=== PATIENT | female | born 1975 | race Caucasian/White ===

== ENCOUNTER 2017-06-30 03:22 | Inpatient (IN) | payer OTHER ==
[~2017-06-30] VITALS: Ht 167.6 cm; Wt 87.1 kg
[2017-06-30] MEDS ORDERED: LR 1,000 ML IV ONE (03:26)
[2017-06-30] MEDS ORDERED: OXYTOCIN/NORMAL SALINE 1,000 ML IV SCH (03:26)
[2017-06-30] MEDS ORDERED: NALBUPHINE HCL 10 MG/ML AMP IVP PRN (03:30)
[2017-06-30] MEDS ORDERED: TERBUTALINE SULFATE 1 MG/ML VIAL SUBCUT ONE (03:30)
[2017-06-30] MEDS: LR 1,000 ML IV SCH ×2 (04:14→10:48)
[2017-06-30 04:40] LABS: BASOPHILS % (AUTO) 0.2 % (0.0-2.0); EOSINOPHILS # (AUTO) 0.2 K/uL (0.0-0.4); EOSINOPHILS % (AUTO) 1.6 % (0.0-4.0); LYMPHOCYTES # (AUTO) 1.4 K/uL (1.0-5.5); LYMPHOCYTES % (AUTO) 12.8 % (20.5-51.5); MEAN CORPUSCULAR HEMOGLOBIN 30 pg (27-31); MEAN CORPUSCULAR HGB CONC 33 % (32-36); MEAN CORPUSCULAR VOLUME 89 fL (79.0-98.0); MONOCYTES # (AUTO) 0.6 K/uL (0.0-1.0); MONOCYTES % (AUTO) 5.6 % (1.7-9.3); NEUTROPHILS # (AUTO) 8.4 K/uL (1.8-7.7); NEUTROPHILS % (AUTO) 79.8 % (40.0-70.0); PLATELET COUNT (AUTO) 164 K/uL (130-430); RED BLOOD CELL COUNT(AUTO) 4.04 MIL/uL (4.2-6.2); RED CELL DISTRIBUTION WIDTH 12.4 % (9.0-15.0); WHITE BLOOD COUNT (AUTO) 10.6 K/uL (4.8-10.8)
[2017-06-30] MEDS ORDERED: FENT2mCg/mL-ROPIVA0.2%/NS EPID 150 ML EP ONE (05:38)
[2017-06-30] MEDS ORDERED: fentaNYL CITRATE/PF 100 MCG/2 ML AMP ONE (05:39)
[2017-06-30] MEDS ORDERED: LR 500 ML IV ONE (08:04)
[2017-06-30] MEDS ORDERED: FENT2mCg/mL-ROPIVA0.2%/NS EPID 150 ML EP SCH (08:15)
[2017-06-30] MEDS ORDERED: HYDROCORTISONE 0.5%, 28.35 GM TOPICAL CREAM TP ONE (08:32)
[2017-06-30 10:50] VITALS: BP_SYST 135
[2017-06-30] MEDS ORDERED: fentaNYL CITRATE 250 MCG/5 ML AMP IV ONE (14:40)
[2017-06-30] MEDS ORDERED: OXYTOCIN 10 UNIT/ML VIAL IV ONE (14:40)
[2017-06-30] MEDS ORDERED: NS IRRIG SOLN 1000 ML IR ONE (14:40)
[2017-06-30] MEDS ORDERED: CEFAZOLIN 1 GM IVPB PREMIX 50 ML IV ONE (14:40)
[2017-06-30] MEDS ORDERED: LIDOCAINE MPF 2% 5mL VIAL INJ ONE (14:40)
[2017-06-30] MEDS ORDERED: LR 1,000 ML IV SCH ×2 (15:14→15:38)
[2017-06-30] MEDS ORDERED: DIPHENHYDRAMINE INJ 50 MG/ML VIAL IM PRN (15:15)
[2017-06-30] MEDS ORDERED: ONDANSETRON HCL 4 MG/2 ML VIAL IVP PRN (15:15)
[2017-06-30] MEDS ORDERED: METOCLOPRAMIDE HCL 10 MG/2 ML VIAL IVP PRN (15:15)
[2017-06-30] MEDS ORDERED: NALOXONE HCL 0.4 MG/ML AMP (NARCAN) IVP PRN (15:15)
[2017-06-30] MEDS ORDERED: MORPHINE SULFATE 10MG/10ML PF AMP EP SCH (15:15)
[2017-06-30] MEDS ORDERED: KETOROLAC TROMETHAMINE 60 MG/2 ML VIAL IM PRN (15:15)
[2017-06-30] MEDS ORDERED: OXYTOCIN/NORMAL SALINE 1,000 ML IV ONE ×2 (15:38→15:56)
[2017-06-30] MEDS ORDERED: BISACODYL 10 MG/SUPPOSITORY RC PRN (15:45)
[2017-06-30] MEDS ORDERED: ANUSOL 1 EA SUPP.RECT (PREPARATION H) RC PRN (15:45)
[2017-06-30] MEDS ORDERED: LANOLIN 7 GM OINT. TP PRN (15:45)
[2017-06-30] MEDS ORDERED: OXYCODONE/ACETAMINOPHEN 5-325 TABLET PO PRN (15:45)
[2017-06-30] MEDS ORDERED: ACETAMINOPHEN 325 MG TABLET PO PRN (15:45)
[2017-06-30] MEDS ORDERED: RHO(D) IMMUNE GLOBULIN/MALTOSE 1500 UNITS/1.3 ML (WINHRO) IM PRN (15:45)
[2017-06-30] MEDS ORDERED: DOCUSATE SODIUM 100 MG CAPSULE PO PRN (15:45)
[2017-06-30] MEDS ORDERED: DIPH-TET-PERTUS Vaccine 0.5 ML VIAL (ADACEL) I.M. PRN (15:45)
[2017-06-30] MEDS ORDERED: SENNOSIDES/DOCUSATE SODIUM 1 TAB TABLET(SENOKOT-S) PO PRN (15:45)
[2017-06-30] MEDS ORDERED: MEASLES,MUMPS&RUBELLA VACC/PF 12500 UNIT/0.5 ML VIAL SUBQ PRN (15:45)
[2017-06-30] MEDS ORDERED: SIMETHICONE 80 MG TAB.CHEW PO PRN (15:45)
[2017-06-30 16:09] VITALS: BP_SYST 118
[2017-06-30] MEDS ORDERED: KETOROLAC TROMETHAMINE 60 MG/2 ML VIAL IM ONE (16:50)
[2017-06-30] MEDS ORDERED: KETOROLAC TROMETHAMINE 30 MG VIAL ONE (16:53)
[2017-06-30] MEDS ORDERED: TEMAZEPAM 15 MG CAPSULE PO PRN (21:00)
[2017-06-30] MEDS: CEFAZOLIN 1 GM IVPB PREMIX 50 ML IV SCH (21:00)
[2017-07-01] MEDS: CEFAZOLIN 1 GM IVPB PREMIX 50 ML IV SCH ×2 (03:11→09:00)
[2017-07-01 06:41] LABS: BASOPHILS % (AUTO) 0.2 % (0.0-2.0); EOSINOPHILS # (AUTO) 0.1 K/uL (0.0-0.4); EOSINOPHILS % (AUTO) 0.7 % (0.0-4.0); HEMATOCRIT 29.8 % (36-48); HEMOGLOBIN 9.9 g/dL (12.0-16.0); LYMPHOCYTES # (AUTO) 0.8 K/uL (1.0-5.5); LYMPHOCYTES % (AUTO) 6.1 % (20.5-51.5); MEAN CORPUSCULAR HEMOGLOBIN 29 pg (27-31); MEAN CORPUSCULAR HGB CONC 33 % (32-36); MEAN CORPUSCULAR VOLUME 89 fL (79.0-98.0); MONOCYTES # (AUTO) 0.6 K/uL (0.0-1.0); NEUTROPHILS # (AUTO) 11.1 K/uL (1.8-7.7); PLATELET COUNT (AUTO) 138 K/uL (130-430); RED BLOOD CELL COUNT(AUTO) 3.37 MIL/uL (4.2-6.2); RED CELL DISTRIBUTION WIDTH 12.5 % (9.0-15.0); WHITE BLOOD COUNT (AUTO) 12.6 K/uL (4.8-10.8)
[2017-07-01] MEDS: IBUPROFEN 600 MG TABLET PO SCH ×2 (12:45→17:58)
[2017-07-01] MEDS: OXYCODONE/ACETAMINOPHEN 5-325 TABLET PO PRN ×2 (12:46→17:58)
[2017-07-01] MEDS ORDERED: CEFAZOLIN 1 GM IVPB PREMIX 50 ML IV SCH (21:00)
[2017-07-02] MEDS: IBUPROFEN 600 MG TABLET PO SCH ×3 (00:03→11:42)
[2017-07-02] MEDS: OXYCODONE/ACETAMINOPHEN 5-325 TABLET PO PRN ×3 (00:04→18:00)
[2017-07-03] MEDS: OXYCODONE/ACETAMINOPHEN 5-325 TABLET PO PRN ×2 (00:05→06:31)
[2017-07-03] MEDS: IBUPROFEN 600 MG TABLET PO SCH ×3 (06:00→12:02)
[2017-07-03] MEDS ORDERED: HYDROCORTISONE 0.5%, 28.35 GM TOPICAL CREAM TP PRN (13:00)
[2017-07-03] MEDS ORDERED: DIPHENHYDRAMINE HCL 50 MG CAPSULE PO ONE (13:00)
== END 2017-07-03 14:00 | disposition home or self-care (01) | DRG 765 ==
LOC: SPU 03:22
PROVIDERS: ADMIT Obstetrics & Gynecology; ATTEND Obstetrics & Gynecology
PROC: 10E0XZZ Delivery of Products of Conception, External Approach (ICD-10-PCS; 2017-06-30)
PROC: 3E0R3BZ Introduction of Anesthetic Agent into Spinal Canal, Percutaneous Approach (ICD-10-PCS; 2017-06-30)
PROC: 00HU33Z Insertion of Infusion Device into Spinal Canal, Percutaneous Approach (ICD-10-PCS; 2017-06-30)
PROC: 3E0134Z Introduction of Serum, Toxoid and Vaccine into Subcutaneous Tissue, Percutaneous Approach (ICD-10-PCS; 2017-06-30)
PROC: 10D00Z1 Extraction of Products of Conception, Low, Open Approach (ICD-10-PCS; principal; 2017-06-30 15:00)
DX: O32.8XX2 Maternal care for other malpresentation of fetus, fetus 2 (principal); O30.043 Twin pregnancy, dichorionic/diamniotic, third trimester; Z37.2 Twins, both liveborn; Z3A.37 37 weeks gestation of pregnancy; O09.523 Supervision of elderly multigravida, third trimester; Z23 Encounter for immunization
CPT/HCPCS: 36415; 81002-TC; 85025; 86886; 86900; 86901; 94760; J0690; J1885; J2001; J2590; J3010; Q0163